=== PATIENT | female | born 1975 | race Caucasian/White ===

== ENCOUNTER 2018-03-07 14:53 | Emergency (ER) | payer OTHER ==
[2018-03-07 15:11] VITALS: BP 126/63
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
== END 2018-03-07 18:55 | disposition home or self-care (01) ==
LOC: ER 14:53
DX: M54.2 Cervicalgia (principal); M79.601 Pain in right arm; V49.50XA Passenger injured in collision with unspecified motor vehicles in traffic accident, initial encounter
CPT/HCPCS: 99283